=== PATIENT | female | born 1980 ===

== ENCOUNTER 2018-07-09 14:38 | Emergency (ER) | payer OTHER ==
--- NOTE | 2018-07-09 15:46 | ED PDOC ---
HPI: Female Pain Time Seen by Provider: 07/09/18 14:53 Chief Complaint (Nursing): Female Genitourinary History Per: Patient Onset/Duration Of Symptoms: Other ( 1year) Current Symptoms Are (Timing): Still Present Severity: Mild Quality Of Discomfort: Cramping Associated Symptoms: denies: Fever, Urinary Symptoms Additional Complaint(s): Vaginal spotting/bleeding intermittently x 1 year assoc with lower abd cramping. Had taken 1 dose of depo provera last Jul but none since then. Also c/ o white vaginal discharge in between bleeding assoc with itching Past Medical History Vital Signs: Last Vital Signs Temp 97.0 F L 07/09/18 14:48 Pulse 65 07/09/18 14:48 Resp 18 07/09/18 14:48 BP 115/72 07/09/18 14:48 Pulse Ox 99 07/09/18 14:48 - Medical History PMH: No Chronic Diseases - Family History Family History: States: Unknown Family Hx - Home Medications Home Medications: Ambulatory Orders Medication Instructions Recorded Miconazole 2% Vaginal [Monistat 7 7 applic VG HS 7 Days #1 tube 07/09/18 Vaginal Cream] Naproxen [Naprosyn] 500 mg PO Q12H #20 tab 07/09/18 - Allergies Allergies/Adverse Reactions: Allergies Allergy/AdvReac Type Severity Reaction Status Date / Time No Known Allergies Allergy Verified 07/09/18 14:48 Review of Systems Gastrointestinal: Positive for: Abdominal Pain Genitourinary Female: Positive for: Vaginal Bleeding Physical Exam - Physical Exam Appears: Positive for: Non-toxic, No Acute Distress Gastrointestinal/Abdominal: Positive for: Bowel Sounds, Soft. Negative for: Tenderness Pelvic Exam: Positive for: External Exam Normal, No Masses, Blood (small amount) . Negative for: Active Bleeding, Lesions, Tender W/Cervical Motion, Tender Adnexa, Tender Uterus - ECG O2 Sat by Pulse Oximetry: 99 Disposition - Clinical Impression Clinical Impression: Ovarian cyst, Vaginal candidiasis - Patient ED Disposition Is Patient to be Admitted: No Counseled Patient/Family Regarding: Studies Performed, Diagnosis, Need For Followup, Rx Given - Disposition [facility] Disposition: Routine/Home Disposition Time: 16:35 Condition: FAIR Prescriptions: Miconazole 2% Vaginal [Monistat 7 Vaginal Cream] 7 applic VG HS 7 Days #1 tube Naproxen [Naprosyn] 500 mg PO Q12H #20 tab Instructions: Ovarian Cysts, Vaginal Yeast Infection (DC) Forms: [facility] (Faroese) Print Language: CHINESE
--- NOTE | 2018-07-09 16:17 | US ---
Date of service: 07/09/2018 HISTORY: vaginal bleeding COMPARISON: None available. TECHNIQUE: Transvaginal pelvic ultrasound was performed with longitudinal and transverse images submitted for interpretation. FINDINGS: UTERUS: Measures 7.0 x 2.9 x 4.1 cm. Normal in size with mildly inhomogeneous but nonfocal myometrium identified. The uterus is anteverted. No fibroid or other mass lesion seen. ENDOMETRIUM: Measures 4.0 mm in diameter. Unremarkable. CERVIX: No cervical abnormality identified. RIGHT OVARY: Not identified. No suspicious adnexal mass or fluid collection appreciable. LEFT OVARY: Measures 4.1 x 2.3 x 4.2 cm. No solid mass. Normal flow. A mildly complex cysts is identified at the left ovary measuring 3.5 x 2.1 x 3.4 cm, avascular on color per ultrasound with a posterior septation and questionable nodularity. FREE FLUID: No significant free fluid noted. OTHER FINDINGS: None. IMPRESSION: 1. 3.5 cm mildly complex cyst left ovary for which follow-up transvaginal pelvic ultrasound is recommended in 6-8 weeks. The right ovary is not identified due to extensive bowel overlying the right adnexal compartment. 2. Nonfocal but heterogeneous myometrial echotexture with the uterus and endometrium swells cervix unremarkable otherwise.
[2018-07-09 16:32] LABS: BASO # 0.1 K/uL (0.0-0.2); BASO % 1.1 % (0.0-2.0); EOS # 0.1 K/uL (0.0-0.7); HEMOGLOBIN 12.9 g/dL (12.0-16.0); LYMPH % 28.1 % (20.0-40.0); MEAN CORPUSCULAR HGB CONC 34.1 g/dL (33.0-37.0); MEAN PLATELET VOLUME 9.4 fl (7.2-11.7); MONO # 0.6 K/uL (0.0-0.8); NEUT # 4.3 K/uL (1.8-7.0); NEUT % 60.8 % (50.0-75.0); NRBC % 0.1 % (0.0-0.0); RBC 4.05 Mil/uL (3.80-5.20); RED CELL DISTRIBUTION WIDTH 13.2 % (11.5-14.5)
[2018-07-09 17:02] VITALS: BP 128/76; PULSE 78; RESP 19; TEMP 97; O2SAT 98
== END 2018-07-09 17:02 | disposition home or self-care (01) ==
LOC: H.ER 14:38
DX: B37.3 Candidiasis of vulva and vagina (principal); N83.209 Unspecified ovarian cyst, unspecified side